=== PATIENT | male | born 1980 | race Two or more races ===

== ENCOUNTER 2019-03-06 20:54 | Emergency (ER) | payer SELFPAY ==
[~2019-03-06] VITALS: Ht 175.3 cm; Wt 72.6 kg
[2019-03-06 22:03] VITALS: BP 117/60
== END 2019-03-06 23:02 | disposition home or self-care (01) ==
LOC: ER 20:59
DX: K40.90 Unilateral inguinal hernia, without obstruction or gangrene, not specified as recurrent (principal)